=== PATIENT | female | born 1990 | race African-American/Black ===

== ENCOUNTER 2018-10-19 08:13 | Emergency (ER) | payer MEDICAID ==
[~2018-10-19] VITALS: Ht 162.6 cm; Wt 78.5 kg
[2018-10-19 08:24] VITALS: BP 104/66
--- NOTE | 2018-10-19 08:33 | NUR ---
PATIENT AMBULATED TO BED 6 AT THIS TIME.
--- NOTE | 2018-10-19 09:00 | NUR ---
BIB SELF WITH C/O LOW BLOOD PRESSURE, PT WAS SENT OVER FROM [facility], A TREATMENT PROGRAM, PT IS ALSO 5 MONTHS WITH BACK PAIN AND RIGHT LEG PAIN, [id number] PMH: C-SECTIONS RX: NONE
--- NOTE | 2018-10-19 09:48 | NUR ---
Patient being evaluated by DR BRIDGES at bedside.
[2018-10-19 10:53] VITALS: BP 96/60
== END 2018-10-19 10:52 | disposition home or self-care (01) ==
LOC: MED 08:13
DX: O26.892 Other specified pregnancy related conditions, second trimester (principal); R10.2 Pelvic and perineal pain; R03.1 Nonspecific low blood-pressure reading; M79.671 Pain in right foot; R06.02 Shortness of breath; R42 Dizziness and giddiness; R05 Cough; R09.81 Nasal congestion; R30.0 Dysuria; Z91.040 Latex allergy status; Z3A.20 20 weeks gestation of pregnancy
CPT/HCPCS: 81002; 81025; 99283